=== PATIENT | male | born 1975 | race Caucasian/White ===

== ENCOUNTER 2017-12-17 02:50 | Emergency (ER) | payer MEDICAID ==
[2017-12-17] MEDS ORDERED: cefTRIAXone 1 GM in Sodium Chloride 0.9% 50 ML IV ONE (03:07)
[2017-12-17] MEDS ORDERED: Lidocaine 2% Gel 5 mL TP ONE ×2 (03:08→03:20)
[2017-12-17] MEDS ORDERED: Fluorescein Sodium 1 mg Ophth Strip EACH EYE ONE (03:09)
[2017-12-17] MEDS ORDERED: Tetracaine 0.5% Ophth Soln 15 mL Soln EACH EYE ONE (03:09)
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
[2017-12-17] MEDS ORDERED: Fluorescein Sodium 1 mg Ophth Strip ONE (03:15)
[2017-12-17] MEDS ORDERED: TETRACAINE HCL 0.5% OPHTH SOLN 4ML BOTTLE ONE (03:15)
[2017-12-17] MEDS ORDERED: Triple Antibiotic 0.94 gm Pkt TP ONE (04:29)
== END 2017-12-17 05:17 | disposition home or self-care (01) ==
LOC: ER 02:50
DX: T22.20XA Burn of second degree of shoulder and upper limb, except wrist and hand, unspecified site, initial encounter (principal); T20.10XA Burn of first degree of head, face, and neck, unspecified site, initial encounter; T31.0 Burns involving less than 10% of body surface; S90.922A Unspecified superficial injury of left foot, initial encounter; X08.8XXA Exposure to other specified smoke, fire and flames, initial encounter; Y93.89 Activity, other specified; Y92.89 Other specified places as the place of occurrence of the external cause; Y99.8 Other external cause status
CPT/HCPCS: 99284; 16020; 90715; 96372 ×2; J1885; J0696; J2001; Z7502